=== PATIENT | male | born 1955 ===

== ENCOUNTER 2018-03-28 09:48 | Inpatient (IN) | payer OTHER ==
[~2018-03-28] VITALS: Ht 180.3 cm; Wt 103.1 kg
[2018-03-28] VITALS (17 sets, daily range): BP systolic 96–127; BP diastolic 54–71
[~2018-03-28 09:48] MED LIST: ATRIN INH; IBUP-1984 PO; MOME13HF2 INH; acetaminophen 325mg tablet PO ONE; cefazolin/dext.iso 2gm/100 ML IV ONE; famotidine 20mg tablet PO ONE; gabapentin 300mg capsule PO ONE; metoclopramide 5 mg/ml inj IV ONE; oxyCODONE SR 10mg (sust. release) tab -2 tabs (20mg) PO ONE; ringers solution, lacted 1,000 ML IV SCH; tranexamic acid inj. 1,000 MG in normal saline 100 ML IV ONE; vancomycin inj 1,500 MG in normal saline 300ml IV soln IV ONE
[2018-03-28] MEDS ORDERED: calcium chloride 100 MG/1 ML inj IV ONE (10:38)
[2018-03-28] MEDS ORDERED: ipratropium/albuterol 3ml nebule NEB ONE (10:40)
[2018-03-28] MEDS ORDERED: MIDAZolam 1mg/ml 10ml vial ONE (11:00)
[2018-03-28] MEDS ORDERED: fentaNYL/PF 50MCG/1 ML 2ML syringe ONE (11:00)
[2018-03-28] MEDS ORDERED: Thrombin (Bovine) 5,000 unit vial TP ONE (11:00)
[2018-03-28] MEDS ORDERED: tetracaine 1% (10mg/ml) pres. free inj. ONE (11:05)
[2018-03-28] MEDS ORDERED: cloNIDine hcl/PF 100mcg/ml inj ONE (11:05)
[2018-03-28] MEDS ORDERED: ceFAZolin 1000mg inj ONE (11:07)
[2018-03-28] MEDS ORDERED: KETOROLAC TROMETH IU ONE ×10 (11:30)
[2018-03-28] MEDS ORDERED: EPINEPHRINE IU ONE ×10 (11:30)
[2018-03-28] MEDS ORDERED: [UNRECOGNIZED DRUG - OTHER] IU ONE ×10 (11:30)
[2018-03-28] MEDS ORDERED: ROPIVACAINE IU ONE ×10 (11:30)
[2018-03-28] MEDS ORDERED: ROPIVAcaine inj 200 MG, ketorolac trometh inj. 30 MG, epiNEPHrine inj 0.6 MG, morphine ... IU ONE ×5 (11:45)
[2018-03-28] MEDS ORDERED: vancomycin 1,000mg inj ONE (12:32)
[2018-03-28] MEDS ORDERED: morphine 4 MG/ML inj SYRINge IV PRN ×2 (12:55)
[2018-03-28] MEDS ORDERED: meperidine/PF 25mg/ml syringe IV PRN ×3 (12:55)
[2018-03-28] MEDS ORDERED: proCHLORperazine 10 MG/2 ml inj IV PRN (12:55)
[2018-03-28] MEDS ORDERED: ondansetron/PF 4mg/2ml inj IV PRN ×2 (12:55→13:40)
[2018-03-28] MEDS ORDERED: ringers solution, lacted 1,000 ML IV SCH (12:55)
[2018-03-28] MEDS ORDERED: dexamethasone sod phosphate 4mg/ml inj. ONE (13:31)
[2018-03-28] MEDS ORDERED: ROPIVAcaine 0.5% (5mg/ml) 30ml vial ONE (13:31)
[2018-03-28] MEDS ORDERED: HYDROmorphone 1 mg/ml syringe IV PRN (13:40)
[2018-03-28] MEDS ORDERED: acetaminophen 325mg tablet PO PRN (13:40)
[2018-03-28] MEDS ORDERED: diphenhydrAMINE 25mg capsule PO PRN ×2 (13:40)
[2018-03-28] MEDS ORDERED: HYDROmorphone inj. 0.5 MG/0.5 ML DISP.SYRIN IV PRN (13:40)
[2018-03-28] MEDS ORDERED: magnesium hydroxide 30ml (MOM) UD suspension PO PRN (13:40)
[2018-03-28] MEDS ORDERED: bisacodyl 10mg suppository rectal RC PRN (13:40)
--- NOTE | 2018-03-28 14:20 | NUR ---
Received from OR via BED , accompanied by Anesthesiologist DR AU and report given by Anesthesiolgist. PATIENT WAKING UP, DENIES PAIN, V/S WNL, NEUROVASCULAR CHECKS INTACT, 18G PIV LUE , DRESSING TO RIGHT KNEE CDI W/ COLD POWDER PACK AND W/ SCD ON. F/C DRAINING CLEAR YELLOW URINE. SENSATION T-10.
[2018-03-28] MEDS ORDERED: albuterol 2.5 MG/3 ML nebule NEB SCH (15:00)
--- NOTE | 2018-03-28 15:20 | NUR ---
PATIENT A&OX4, DENIES PAIN, V/S WNL, NEUROVASCULAR CHECKS INTACT, 18G PIV LUE , DRESSING TO RIGHT KNEE CDI W/ COLD POWDER PACK AND W/ SCD ON. F/C DRAINING CLEAR YELLOW URINE. SENSATION T-12. PATIENT TAKEN TO WITH ALL BELONGINGS AND HOOKED UP TO MONITORS IN ROOM 4024B AND REPORT GIVEN TO [employer] COACH KYLE WHO HAS TAKEN OVER PATIENT [id number]
[2018-03-28] MEDS: acetaminophen 325mg tablet PO SCH ×2 (15:40→20:25)
[2018-03-28] MEDS: potassium cl 20mEq in 1/2 NS 1,000 ML IV SCH (16:25)
[2018-03-28] MEDS: ceFAZolin 1GM/D5W- ADD-VANTAGE 50 ML IV SCH (16:27)
[2018-03-28] MEDS ORDERED: tranexamic acid inj. 1,000 MG in normal saline 100ml IV soln 100 ML IV ONE (16:30)
[2018-03-28] MEDS: ipratropium/albuterol 3ml nebule IH SCH ×2 (16:49→21:24)
[2018-03-28] MEDS ORDERED: ipratropium 0.5 MG/2.5ML nebule IH SCH (17:00)
[2018-03-28] MEDS: oxyCODONE IR 5mg (immed. release) tablet PO PRN (17:02)
--- NOTE | 2018-03-28 18:15 | NUR ---
Received report from Jillian JOHN, assumed care of patient.
[2018-03-28] MEDS ORDERED: vancomycin/NS 1 GM ADD-VANTAGE 250 ML IV SCH (20:00)
[2018-03-28] MEDS: sennosides 8.6mg tablet PO SCH (20:26)
[2018-03-28] MEDS: gabapentin 300mg capsule PO SCH (20:26)
[2018-03-28] MEDS: budesonide 0.5mg/2ml UD nebule IH SCH (21:23)
[2018-03-29] MEDS: ceFAZolin 1GM/D5W- ADD-VANTAGE 50 ML IV SCH (00:10)
[2018-03-29 02:00] VITALS: BP 123/70
[2018-03-29] MEDS: potassium cl 20mEq in 1/2 NS 1,000 ML IV SCH ×3 (02:08→15:58)
[2018-03-29] MEDS: acetaminophen 325mg tablet PO SCH ×4 (02:08→20:34)
[2018-03-29] MEDS: oxyCODONE IR 5mg (immed. release) tablet PO PRN (05:47)
[2018-03-29 06:00] VITALS: BP 140/78
--- NOTE | 2018-03-29 06:20 | NUR ---
Report given to Fay JOHN.
--- NOTE | 2018-03-29 06:25 | NUR ---
Patient in room ORTHO 4024. I have received report from Jennifer JOHN and had the opportunity to ask questions and assume patient care.
[2018-03-29 07:18] LABS: BASOPHILS % (AUTO) 0 % (0-1); EOSINOPHILS # (AUTO) 0.2 X10'3 (0-0.9); EOSINOPHILS % (AUTO) 1.4 % (0-6); HEMATOCRIT 36.7 % (42.0-52.0); HEMOGLOBIN 12.3 g/dl (14.0-17.9); LYMPHOCYTES % (AUTO) 7.5 % (21-51); MEAN CORPUSCULAR HEMOGLOBIN 31.1 PG (27.0-31.0); MEAN CORPUSCULAR HGB CONC 33.4 % (33.0-36.5); MEAN CORPUSCULAR VOLUME 93.1 FL (78-98); MEAN PLATELET VOLUME 7.3 FL (7.4-10.4); MONOCYTES # (AUTO) 1.1 X10'3 (0-0.9); MONOCYTES % (AUTO) 8.8 % (2-12); NEUTROPHILS # (AUTO) 10.5 X10'3 (1.8-7.7); NEUTROPHILS % (AUTO) 82.3 % (42-75); PLATELET COUNT 213 X10'3 (140-440); RED BLOOD COUNT 3.94 X10'6 (4.70-6.10); RED CELL DISTRIBUTION WIDTH 13.1 % (11.5-14.5); WHITE BLOOD COUNT 12.8 X10'3 (4.5-11.0)
[2018-03-29] MEDS: budesonide 0.5mg/2ml UD nebule IH SCH ×2 (07:23→20:45)
[2018-03-29] MEDS: ipratropium/albuterol 3ml nebule IH SCH ×4 (07:23→20:46)
[2018-03-29] MEDS: celeCOXIB 100mg capsule PO SCH ×2 (07:37→20:33)
[2018-03-29] MEDS: gabapentin 300mg capsule PO SCH ×3 (07:37→20:34)
[2018-03-29] MEDS: aspirin 325mg tablet PO SCH (07:37)
[2018-03-29] MEDS ORDERED: ASPI-1 PO (09:41)
--- NOTE | 2018-03-29 11:38 | NUR ---
Joint replacement consult: Pt PO 100% diet so far meeting needs post-op. BMI 32 w/ no CMP. No nutrition concerns at this time. Addendum: 03/29/18 at [address] Amended: Links added.
[2018-03-29 18:00] VITALS: BP 111/66
--- NOTE | 2018-03-29 18:28 | NUR ---
Problems reprioritized. Patient report given, questions answered & plan of care reviewed with Vianey JOHN.
--- NOTE | 2018-03-29 18:31 | NUR ---
Patient in room ORTHO 4024. I have received report from Fay JOHN and had the opportunity to ask questions and assume patient care.
[2018-03-29] MEDS ORDERED: celeCOXIB 100mg capsule PO SCH (20:00)
[2018-03-29] MEDS: sennosides 8.6mg tablet PO SCH (20:34)
[2018-03-29 22:00] VITALS: BP 127/79
[2018-03-30] MEDS: oxyCODONE IR 5mg (immed. release) tablet PO PRN ×3 (00:17→14:59)
[2018-03-30] MEDS: acetaminophen 325mg tablet PO SCH ×2 (02:00→10:08)
--- NOTE | 2018-03-30 05:06 | NUR ---
Patient not wanting pain medication before physical therapy. Patients pain is a 4/10 at this time.
[2018-03-30 06:00] VITALS: BP 143/106
--- NOTE | 2018-03-30 06:25 | NUR ---
Patient in room ORTHO 4024. I have received report from Vianey JOHN and had the opportunity to ask questions and assume patient care.
--- NOTE | 2018-03-30 06:36 | NUR ---
Problems reprioritized. Patient report given, questions answered & plan of care reviewed with Fay JOHN.
[2018-03-30 06:46] LABS: BASOPHILS % (AUTO) 0.1 % (0-1); EOSINOPHILS # (AUTO) 0.3 X10'3 (0-0.9); EOSINOPHILS % (AUTO) 2.7 % (0-6); HEMATOCRIT 32.8 % (42.0-52.0); HEMOGLOBIN 11.2 g/dl (14.0-17.9); LYMPHOCYTES # (AUTO) 2.2 X10'3 (1.1-4.8); MEAN CORPUSCULAR HEMOGLOBIN 31.7 PG (27.0-31.0); MEAN CORPUSCULAR VOLUME 93.2 FL (78-98); MEAN PLATELET VOLUME 7.2 FL (7.4-10.4); MONOCYTES % (AUTO) 9.9 % (2-12); NEUTROPHILS # (AUTO) 6.4 X10'3 (1.8-7.7); NEUTROPHILS % (AUTO) 65.3 % (42-75); PLATELET COUNT 203 X10'3 (140-440); RED BLOOD COUNT 3.52 X10'6 (4.70-6.10); RED CELL DISTRIBUTION WIDTH 13.3 % (11.5-14.5); WHITE BLOOD COUNT 9.9 X10'3 (4.5-11.0)
[2018-03-30] MEDS: ipratropium/albuterol 3ml nebule IH SCH ×2 (08:08→11:45)
[2018-03-30] MEDS: budesonide 0.5mg/2ml UD nebule IH SCH (08:08)
[2018-03-30 10:00] VITALS: BP 124/72
[2018-03-30] MEDS: gabapentin 300mg capsule PO SCH ×2 (10:07→14:58)
[2018-03-30] MEDS: celeCOXIB 100mg capsule PO SCH (10:07)
[2018-03-30] MEDS: aspirin 325mg tablet PO SCH (10:07)
[2018-03-30] MEDS ORDERED: acetaminophen 325mg tablet PO PRN (13:40)
--- NOTE | 2018-03-30 17:48 | NUR ---
Patient stable for transfer back to retirement. All instructions given to patient. Patient instructions also faxed to retirement.
== END 2018-03-30 16:51 | DRG 470 ==
LOC: EDBD 09:48 → PAS IN 09:48 → EDSTATUS 10:00 → EEVIPCON 13:00 → ORTHO 4S 15:30
PROVIDERS: ADMIT Orthopaedic Surgery; ATTEND Orthopaedic Surgery
PROC: 3E0T3BZ Introduction of Anesthetic Agent into Peripheral Nerves and Plexi, Percutaneous Approach (ICD-10-PCS; 2018-03-28)
PROC: 8E0Y0CZ Robotic Assisted Procedure of Lower Extremity, Open Approach (ICD-10-PCS; 2018-03-28)
PROC: 0SRC069 Replacement of Right Knee Joint with Oxidized Zirconium on Polyethylene Synthetic Substitute, Cemented, Open Approach (ICD-10-PCS; principal; 2018-03-28 11:00)
DX: M17.11 Unilateral primary osteoarthritis, right knee (principal); D62 Acute posthemorrhagic anemia; G47.30 Sleep apnea, unspecified; J45.909 Unspecified asthma, uncomplicated; Z99.81 Dependence on supplemental oxygen; Z88.6 Allergy status to analgesic agent; Z88.0 Allergy status to penicillin; Z79.899 Other long term (current) drug therapy; Z87.891 Personal history of nicotine dependence
CPT/HCPCS: 36415; 82948; 85025; 94640; 94760; 97110; 97116; 97161; 97530; A6455; A7000; C1713; C1758; C1776; G0378; J0171; J0690; J0735; J1100; J1885; J2250; J2270; J2405; J2765; J2795; J3010; J3370; J7030; J7120; J7626